=== PATIENT | female | born 1960 | race Caucasian/White ===

== ENCOUNTER 2017-11-12 16:36 | Emergency (ER) | payer SELFPAY ==
[~2017-11-12] VITALS: Ht 160 cm; Wt 43.8 kg
[~2017-11-12 16:36] MED LIST: AMOX500T PO; CLIN1CAP5 PO; CYMB60CA PO; DIAZ10TA2 PO; LORTA5 PO; MORP30SU PO; TOPA200T4 PO; TRAZ100T50 PO
[2017-11-12 16:38] VITALS: BP 120/76; PULSE 83; RESP 16; TEMP 98.2; O2SAT 97
[2017-11-12] MEDS ORDERED: SODIUM CHLORIDE 0.9% FLUSH 10 ML FLUSH IV FLUSH PRN (17:00)
[2017-11-12] MEDS ORDERED: SODIUM CHLOR 0.9% 1000 ML INJ 1,000 ML IV ONE (17:00)
[2017-11-12] MEDS ORDERED: OXYC30TA PO (17:02)
[2017-11-12] MEDS ORDERED: MSIR30 PO (17:02)
[2017-11-12] MEDS ORDERED: CYMB60CA PO (17:02)
[2017-11-12] MEDS ORDERED: DIAZ10TA PO (17:02)
[2017-11-12] MEDS ORDERED: TOPI200 PO (17:02)
--- NOTE | 2017-11-12 17:03 | PD ---
HPI Chief Complaint: Abdominal Pain Time Seen by Provider: 16:48 Travel History International Travel<30 days: No Contact w/Intl Traveler<30days: No Traveled to known affect area: No History of Present Illness HPI The patient was seen and examined in the presence of the nurse. Patient complains of abdominal pain. Pain is diffuse. She has chronic daily abdominal pain. She has had 2 operations for adhesions. She goes to pain management and smokes marijuana for assistance with her pain. She also complains of feeling dizzy and lightheaded. No syncope or headache or chest pain. Symptom severity is moderate. No alleviating factors. No exacerbating factors. Duration of the acute flare is 2 days but her pain is chronic PFSH Past Medical History Depression: Yes Diminished Hearing: No Musculoskeletal: Yes (NECK PAIN) Neurologic: Yes (TRIGEMINAL NEURALGIA) ?: Not Menopausal: Yes Tubal Ligation: Yes Past Surgical History Abdominal Surgery: Yes (ADHESION REMOVAL X 2; SEVERAL BELLY BUTTON SURGERIES) Tonsillectomy: Yes Other Surgery: Yes (SINUS SURGERY) Social History Alcohol Use: No Tobacco Use: Yes (BLACK&MILDS, FEW DAILY) Substance Use: No Allergies-Medications (Allergen,Severity, Reaction): Coded Allergies: diclofenac (Unverified Allergy, Severe, "ABDOMINALPAIN AND CRAMPING", 11/12) etodolac (Unverified Allergy, Severe, "ABDOMINALPAIN AND CRAMPING", ) flurbiprofen (Unverified Allergy, Severe, "ABDOMINALPAIN AND CRAMPING", ) ibuprofen (Unverified Allergy, Severe, "ABDOMINALPAIN AND CRAMPING", ) indomethacin (Unverified Allergy, Severe, "ABDOMINALPAIN AND CRAMPING", ) ketoprofen (Unverified Allergy, Severe, "ABDOMINALPAIN AND CRAMPING", 11/12) ketorolac (Unverified Allergy, Severe, "ABDOMINALPAIN AND CRAMPING", ) levofloxacin (Unverified Allergy, Severe, "JOINT PAIN", 11/12/17) metoclopramide (Unverified Allergy, Severe, "LOSS OF MUSCLE CONTROL", 11/12) naproxen (Unverified Allergy, Severe, "ABDOMINALPAIN AND CRAMPING", ) oxaprozin (Unverified Allergy, Severe, "ABDOMINALPAIN AND CRAMPING", ) Sulfa (Sulfonamide Antibiotics) (Unverified Allergy, Unknown, UNKNOW REACTION, 11/12/17) Uncoded Allergies: ORAL STEROIDS (Allergy, Mild, "HEAD PAIN", 07/26/08) STEROIDS (Allergy, Unknown, 05/08/09) Reported Meds & Prescriptions Reported Meds & Active Scripts Active Reported Oxycodone (Oxycodone HCl) 30 Mg Tab 60 Mg PO TID PRN Cymbalta DR (Duloxetine HCl) 60 Mg Capdr 60 Mg PO DAILY Diazepam 10 Mg Tab 10 Mg PO TID PRN Morphine IR (Morphine Sulfate) 30 Mg Tab 90 Mg PO TID PRN Topamax (Topiramate) 200 Mg Tab 600 Mg PO BID Topamax (Topiramate) 200 Mg Tab 200 Mg PO BID Review of Systems General / Constitutional: No: Fever Eyes: No: Visual changes HENT: Positive: Lightheadedness, No: Headaches Cardiovascular: No: Chest Pain or Discomfort Respiratory: No: Shortness of Breath Gastrointestinal: Positive: Abdominal Pain Genitourinary: No: Dysuria Musculoskeletal: No: Pain Skin: No Rash Neurologic: Positive: Dizziness, No: Weakness Psychiatric: No: Depression Endocrine: No: Polydipsia Hematologic/Lymphatic: No: Easy Bruising Physical Exam Narrative GENERAL: Thin, well-developed patient in no apparent distress. SKIN: Focused skin assessment reveals no rash and nodules. Skin is Warm and dry. HEAD: Atraumatic. Normocephalic. EYES: Pupils equal and round. No scleral icterus. No injection or drainage. ENT: No nasal bleeding or discharge. Mucous membranes pink and moist. NECK: Trachea midline. No JVD. CARDIOVASCULAR: Regular rate and rhythm. No murmur appreciated. RESPIRATORY: No accessory muscle use. Clear to auscultation. Breath sounds equal bilaterally. GASTROINTESTINAL: Abdomen soft, minimal diffuse tenderness without rebound or guarding, nondistended. Hepatic and splenic margins not palpable. MUSCULOSKELETAL: No obvious deformities. No clubbing. No cyanosis. No edema. NEUROLOGICAL: Awake and alert. No obvious cranial nerve deficits. Motor grossly within normal limits. Normal speech. PSYCHIATRIC: Anxious mood and affect; insight and judgment questionable . Data Data Last Documented VS Vital Signs Date Time Temp Pulse Resp B/P (MAP) Pulse Ox O2 Delivery O2 Flow Rate FiO2 11/12/17 18:02 51 16 151/80 (103) 100 Room Air 11/12/17 16:38 98.2 Orders Orders Urinalysis - C+S If Indicated (11/12/17 16:39) Complete Blood Count With Diff (11/12/17 16:53) Comprehensive Metabolic Panel (11/12/17 16:53) Lipase (11/12/17 16:53) Ct Abd/Pel W Iv Contrast(Rout) (11/12/17 16:53) Iv Access Insert/Monitor (11/12/17 16:53) NPO (11/12/17 16:53) Sodium Chloride 0.9% Flush (Ns Flush) (11/12/17 17:00) Sodium Chlor 0.9% 1000 Ml Inj (Ns 1000 M (11/12/17 17:00) Iohexol 350 Inj (Omnipaque 350 Inj) (11/12/17 17:48) Labs Laboratory Tests Test 11/12/17 17:30 11/12/17 17:41 White Blood Count 4.5 TH/MM3 Red Blood Count 4.00 MIL/MM3 Hemoglobin 13.0 GM/DL Hematocrit 39.3 % Mean Corpuscular Volume 98.2 FL Mean Corpuscular Hemoglobin 32.6 PG Mean Corpuscular Hemoglobin Concent 33.2 % Red Cell Distribution Width 12.4 % Platelet Count 148 TH/MM3 Mean Platelet Volume 8.8 FL Neutrophils (%) (Auto) 37.0 % Lymphocytes (%) (Auto) 51.5 % Monocytes (%) (Auto) 5.6 % Eosinophils (%) (Auto) 4.7 % Basophils (%) (Auto) 1.2 % Neutrophils # (Auto) 1.7 TH/MM3 Lymphocytes # (Auto) 2.2 TH/MM3 Monocytes # (Auto) 0.3 TH/MM3 Eosinophils # (Auto) 0.2 TH/MM3 Basophils # (Auto) 0.1 TH/MM3 CBC Comment DIFF FINAL Differential Comment Blood Urea Nitrogen 11 MG/DL Creatinine 0.87 MG/DL Random Glucose 103 MG/DL Total Protein 6.8 GM/DL Albumin 3.6 GM/DL Calcium Level 8.2 MG/DL Alkaline Phosphatase 54 U/L Aspartate Amino Transf (AST/SGOT) 18 U/L Alanine Aminotransferase (ALT/SGPT) 20 U/L Total Bilirubin 0.3 MG/DL Sodium Level 139 MEQ/L Potassium Level 3.6 MEQ/L Chloride Level 106 MEQ/L Carbon Dioxide Level 24.7 MEQ/L Anion Gap 8 MEQ/L Estimat Glomerular Filtration Rate 67 ML/MIN Lipase 125 U/L Urine Color YELLOW Urine Turbidity SL CLOUDY Urine pH 6.5 Urine Specific Jeannette LESS/EQUAL 1.005 Urine Protein NEG mg/dL Urine Glucose (UA) NEG mg/dL Urine Ketones NEG mg/dL Urine Occult Blood NEG Urine Nitrite NEG Urine Bilirubin NEG Urine Urobilinogen 1.0 MG/DL Urine Leukocyte Esterase NEG Urine RBC 0-2 /hpf Urine WBC 0-2 /hpf Urine Squamous Epithelial Cells 0-5 /hpf Urine Amorphous Sediment LARGE Urine Bacteria NONE /hpf Microscopic Urinalysis Comment CULT NOT INDICATED MDM Medical Decision Making Medical Screen Exam Complete: Yes Emergency Medical Condition: Yes Medical Record Reviewed: Yes Differential Diagnosis Exacerbation of chronic abdominal pain, ileus, colitis Narrative Course I have reviewed the patient's electronic medical record. Reviewed all her previous visits. No prior CTs on file for abdomen and pelvis to compare to IV placed and labs sent I gave her 1 L normal saline IV bolus CT of abdomen and pelvis with IV contrast shows no emergent findings. CBC and metabolic studies are normal Lipase and LFTs are normal On recheck she is doing well. Stable for outpatient follow-up. Workup here is negative Diagnosis Primary Impression: Abdominal pain Qualified Codes: R10.84 - Generalized abdominal pain Additional Impression: Lightheadedness Additional Instructions: None The patient was advised to follow up with their physician and return if they worsen. Med/Other Pt SpecificInfo: Other Disposition: 01 DISCHARGE HOME Condition: Stable Marko Oneal MD Nov 12, 2017 17:03
[2017-11-12 17:46] LABS: BILIRUBIN, URINE NEG (NEG); BLOOD, URINE NEG (NEG); GLUCOSE,URINE NEG (NEG); KETONE, URINE NEG (NEG); NITRITE,URINE NEG (NEG); PH, URINE 6.5 (5.0-8.5); URINE COLOR YELLOW (YELLW/STRAW); URINE LEUKOCYTE ESTERASE NEG (NEG)
[2017-11-12 17:47] LABS: AUTOMATED NEUTROPHIL # 1.7 TH/MM3 (1.8-7.7); BASOPHIL # 0.1 TH/MM3 (0-0.2); BASOPHIL % 1.2 % (0.0-2.0); EOSINOPHIL # 0.2 TH/MM3 (0-0.4); EOSINOPHIL % 4.7 % (0.0-4.0); HEMATOCRIT 39.3 % (35.0-46.0); LYMPH % 51.5 % (9.0-44.0); LYMPHOCYTE # 2.2 TH/MM3 (1.0-4.8); MEAN CELL VOLUME 98.2 FL (80.0-100.0); MEAN CORPUSCULAR HEMOGLOBIN 32.6 PG (27.0-34.0); MEAN CORPUSCULAR HGB CONC 33.2 % (32.0-36.0); MEAN PLATELET VOLUME 8.8 FL (7.0-11.0); MONO % 5.6 % (0.0-8.0); MONOCYTE # 0.3 TH/MM3 (0-0.9); PLATELET COUNT 148 TH/MM3 (150-450); RED CELL DISTRIBUTION WIDTH 12.4 % (11.6-17.2); WHITE BLOOD COUNT 4.5 TH/MM3 (4.0-11.0)
[2017-11-12] MEDS ORDERED: IOHEXOL 350 MG/ML 10 ML VIAL (for RAD DIAG) IVCONTRAST ONE (17:48)
[2017-11-12 17:51] LABS: AMORPHOUS SEDIMENT, URINE LARGE; RBC, URINE 0-2 /hpf (0-3); SQUAMOUS EPITHELIAL CELL URINE 0-5 /hpf (0-5); WBC, URINE 0-2 /hpf (0-5)
[2017-11-12 17:54] LABS: CHLORIDE 106 MEQ/L (98-107); SODIUM (NA) 139 MEQ/L (136-145)
[2017-11-12 17:57] LABS: CALCIUM 8.2 MG/DL (8.5-10.1)
[2017-11-12 17:58] LABS: ALBUMIN 3.6 GM/DL (3.4-5.0); BICARBONATE 24.7 MEQ/L (21.0-32.0); BLOOD UREA NITROGEN 11 MG/DL (7-18); GLUCOSE,RANDOM 103 MG/DL (74-106)
[2017-11-12 18:01] LABS: ALT (GPT) 20 U/L (10-53); AST (GOT) 18 U/L (15-37); CREATININE 0.87 MG/DL (0.50-1.00); GLOMERULAR FILTRATION RATE 67 ML/MIN (>89)
[2017-11-12 18:02] VITALS: BP 151/80; PULSE 51; RESP 16; O2SAT 100
[2017-11-12 18:02] LABS: TOTAL BILIRUBIN ADULT 0.3 MG/DL (0.2-1.0); TOTAL PROTEIN 6.8 GM/DL (6.4-8.2)
[2017-11-12 18:03] LABS: ALKALINE PHOSPHATASE 54 U/L (45-117)
--- NOTE | 2017-11-12 18:07 | RADRPT ---
EXAM DATE: 11/12/2017 5:52 PM EDT AGE/SEX: 57 years / Female INDICATIONS: Abdominal pain and dizziness for one week. CLINICAL DATA: This is the patient's initial encounter. Patient reports that signs and symptoms have been present for 1 week and indicates a pain score of 4/10. MEDICAL/SURGICAL HISTORY: . Trigeminal neuralgia. Tubal ligation. Sinus surgery. ORAL CONTRAST: No oral contrast ingested. RADIATION DOSE: 4.61 CTDI (mGy) COMPARISON: [facility], CT ABDOMEN & PELVIS W CONTRAST, 09/19/2011. . TECHNIQUE: Multiple contiguous axial images were obtained through the abdomen and pelvis following b olus infusion of 75 ml Omnipaque 350 (iohexol) nonionic water-soluble contrast as a single exam dos e. No oral contrast ingested. Using automated exposure control and adjustment of the mA and/or kV ac cording to patient size, radiation dose was kept as low as reasonably achievable to obtain optimal di agnostic quality images. DICOM format image data is available electronically for review and comparis on. FINDINGS: Lung bases clear. Fatty liver. Small cyst in the left lobe. Spleen, adrenals, kidneys and pancreas un remarkable. No calcified gallstones. No bowel obstruction. Trace free fluid. Previous tubal ligation. No acute bony abnormalities. CONCLUSION: 1. No acute findings. Tiny liver cyst. No significant change from 2011. Electronically signed by: Travis Doherty MD 11/12/2017 6:05 PM EDT
[2017-11-12 19:06] VITALS: BP 146/79
== END 2017-11-12 19:23 | disposition home or self-care (01) ==
LOC: PHED 16:36
DX: R10.84 Generalized abdominal pain (principal); R42 Dizziness and giddiness; Z72.0 Tobacco use
CPT/HCPCS: 74177; 80053; 81001; 83690; 85025; 96360; 96361; 99284; J7030; Q9967